=== PATIENT | female | born 1995 | race Hispanic/Latino ===

== ENCOUNTER 2024-09-17 10:03 | Day surgery (SDC) | payer BC ==
[2024-09-17 10:34] VITALS: BMI 32.1
[2024-09-17 11:20] LABS: Fetal Membranes Rupture No Membranes Rupture (No Rupture)
== END 2024-09-17 11:35 | disposition home or self-care (01) ==
LOC: CSHLD/OP 10:03
PROVIDERS: ATTEND Family Medicine
DX: Z03.71 Encounter for suspected problem with amniotic cavity and membrane ruled out (principal); O47.03 False labor before 37 completed weeks of gestation, third trimester; N89.8 Other specified noninflammatory disorders of vagina; O23.593 Infection of other part of genital tract in pregnancy, third trimester; Z3A.36 36 weeks gestation of pregnancy; Z79.899 Other long term (current) drug therapy
CPT/HCPCS: 84112; 99283

== ENCOUNTER 2024-09-29 05:45 | Inpatient (IN) | payer BC ==
[2024-09-29 06:08] VITALS: BMI 32.7
[2024-09-29] MEDS ORDERED: hydrALAZINE 20 MG/ML VIAL SLOW IVP PRN ×3 (06:57→20:24)
[2024-09-29 08:59] LABS: Bilirubin Neg (Negative); Blood, Urine 50 (Negative); Clarity Clear (Clear); Glucose, Urine (Dipstick) Normal (Negative); Ketone, Urine 50 mg/dL (Negative); Leukocyte Negative (Negative); Nitrite Negative (Negative); Protein, Urine (Dipstick) 15 mg/dl (Neg-Trace); Specific Gravity, Urine 1.025 (1.005-1.030); Urobilinogen Normal mg/dL (Less than 2)
[2024-09-29 09:10] LABS: Bacteria/HPF Rare-Few HPF (None Seen); CAUTI Indications for Culture Pelvic or flank pain; Mucous/LPF 1+ LPF (<2+); Squamous Epithelial 0-3 HPF (0-3); WBC/HPF 0-3 HPF (0-3)
[2024-09-29 09:11] LABS: Urine Culture Reflex No No
[2024-09-29] MEDS ORDERED: Misoprostol 200 MCG TAB PR PRN (10:19)
[2024-09-29] MEDS ORDERED: fentaNYL 50 mcg/mL 1 mL Vial SLOW IVP PRN (10:19)
[2024-09-29] MEDS ORDERED: Promethazine HCl 25 MG/ML VIAL IM PRN (10:19)
[2024-09-29] MEDS ORDERED: Tranexamic Acid 1,000 MG/10 ML VIAL IVP PRN (10:19)
[2024-09-29] MEDS ORDERED: Ondansetron PF 4 MG/2 ML Vial IVP PRN ×2 (10:19→20:24)
[2024-09-29] MEDS ORDERED: Carboprost 250 MCG/ML AMP IM PRN (10:19)
[2024-09-29] MEDS ORDERED: Methylergonovine 0.2 MG/ML VIAL IM PRN (10:19)
[2024-09-29] MEDS ORDERED: Docusate 100 MG CAP PO PRN ×2 (10:19→10:28)
[2024-09-29] MEDS ORDERED: Diphenoxylate HCl/Atropine Tablet PO PRN (10:19)
[2024-09-29] MEDS ORDERED: Lidocaine 1% (PF) 30 ML VIAL SC PRN (10:19)
[2024-09-29] MEDS ORDERED: Acetaminophen 500 MG TAB PO PRN (10:19)
[2024-09-29] MEDS ORDERED: Lactated Ringer's 1,000 ML IV SCH (10:30)
[2024-09-29 10:49] LABS: Hematocrit 38.1 % (34.9-44.5); Hemoglobin 12.6 g/dL (12.0-15.5); Mean Corpuscular HGB CONC 33.1 g/dL (32.0-36.0); Mean Corpuscular Hemoglobin 28.9 pg (27.0-33.0); Mean Corpuscular Volume 87.4 fL (81.6-98.3); Mean Platelet Volume 9.1 fL (7.4-10.4); Platelet Count 256 10x3/uL (150-450); RBC Distribution Width 18.2 % (11.5-14.5); Red Blood Cell (RBC) Count 4.36 10x6/uL (3.90-5.03); White Blood Cell (WBC) Count 8.4 10x3/uL (3.5-10.5)
[2024-09-29 11:21] LABS: Syphilis Antibody Nonreactive (Nonreactive); Syphilis Antibody Index 0.05 S/CO (<1.00 Non-Reactive)
[2024-09-29 11:23] LABS: HBsAg Index 0.18 S/CO (0-0.99); Hep B Surf Ag - L&D Non-Reactive S/CO (NonReactive)
[2024-09-29] MEDS: Oxytocin 30 units/NS 500 ML 500 ML IV SCH (16:42)
[2024-09-29] MEDS: Tranexamic Acid 1,000 MG/10 ML VIAL ONE (20:05)
[2024-09-29] MEDS ORDERED: Benzocaine-Menthol 82.5 ML CAN TOP PRN (20:24)
[2024-09-29] MEDS ORDERED: Lanolin Ointment 7 GM TUBE TOP PRN (20:24)
[2024-09-29] MEDS ORDERED: Preparation H Ointment 28 GM TUBE PR PRN (20:24)
[2024-09-29] MEDS ORDERED: diphenhydrAMINE 25 MG CAP PO PRN (20:24)
[2024-09-29] MEDS ORDERED: Milk Of Magnesia 30 ML UDCUP PO PRN (20:24)
[2024-09-29] MEDS ORDERED: HYDROcodone/Acetaminophen 5/325 mg Tablet PO PRN ×2 (20:24)
[2024-09-29] MEDS ORDERED: Bisacodyl 10 MG SUPP PR PRN (20:24)
[2024-09-29] MEDS ORDERED: Boostrix 0.5 ML (Tdap) VIAL (>/=7 yrs of age) IM ONE (20:24)
[2024-09-29] MEDS: Tranexamic Acid 1,000 MG/10 ML VIAL IVP SCH (20:35)
[2024-09-29] MEDS ORDERED: Oxytocin 30 units/NS 500 ML 500 ML IV SCH ×2 (20:45→21:00)
[2024-09-29] MEDS ORDERED: Tranexamic Acid 1,000 MG in Sodium Chloride 0.9% 250 ML 250 ML IVPB SCH (21:00)
[2024-09-29] MEDS ORDERED: Misoprostol 200 MCG TAB PR SCH (21:00)
[2024-09-29] MEDS: Ferrous Sulfate 325 MG TAB PO SCH (21:32)
[2024-09-29] MEDS: Ibuprofen 800 MG TAB PO SCH (21:33)
[2024-09-29] MEDS: Docusate 100 MG CAP PO SCH (21:47)
[2024-09-30] MEDS: Ferrous Sulfate 325 MG TAB PO SCH (08:00)
[2024-09-30] MEDS: Prenatal Vitamin 1 TAB PO SCH (08:26)
[2024-09-30 19:51] VITALS: BP 114/62; TEMP 98
== END 2024-09-30 18:37 | disposition home or self-care (01) | DRG 807 ==
LOC: CSHLD/OP 05:45 → CSHLD 10:21 → CSHPP 19:43
PROVIDERS: ADMIT Obstetrics & Gynecology; ATTEND Obstetrics & Gynecology
PROC: 10E0XZZ Delivery of Products of Conception, External Approach (ICD-10-PCS; principal; 2024-09-29)
DX: O80 Encounter for full-term uncomplicated delivery (principal); Z37.0 Single live birth; Z3A.38 38 weeks gestation of pregnancy
CPT/HCPCS: 36415; 81001; 85027; 86780; 86850; 86900; 86901; 87340; 99285; J2590